=== PATIENT | male | born 1975 | race African-American/Black ===

== ENCOUNTER 2022-08-29 12:40 | Emergency (ER) | payer OTHER ==
[2022-08-29 13:13] VITALS: BMI 37.3
[2022-08-29] MEDS ORDERED: KETOROLAC TROMETHAMINE 15 MG/ML VIAL IVPUSH ONE (14:15)
[2022-08-29] MEDS ORDERED: KETOROLAC TROMETHAMINE 15 MG/ML VIAL ONE (14:50)
[2022-08-29 15:36] LABS: BASO % 0.8 % (0-2.0); EOS % 0.7 % (0-4.5); HEMATOCRIT 46.8 % (35.4-49); HEMOGLOBIN 15.6 GM/dL (11.7-16.9); LYMPH % 31.2 % (8-40); MCH 26.3 pg (25.7-33.7); MCHC 33.4 g/dl (32.0-35.9); MEAN CELL VOLUME 78.8 fl (80-96); MEAN PLT VOLUME 8.8 fl (7.5-11.1); NEUT % 56.3 % (42.8-82.8); PLATELET COUNT 374 10^3/uL (134-434); RBC 5.94 M/mm3 (4.00-5.60); RDW 13.8 % (11.9-15.9); WHITE BLOOD COUNT 7.9 K/mm3 (4.0-10.0)
[2022-08-29 15:58] LABS: ALBUMIN 3.7 g/dl (3.4-5.0); CALCIUM 9.5 mg/dL (8.5-10.1)
[2022-08-29 15:59] LABS: BLOOD UREA NITROGEN 16.4 mg/dL (7-18)
[2022-08-29 16:01] LABS: CREATININE 1.1 mg/dL (0.55-1.3)
[2022-08-29 16:03] LABS: BILIRUBIN,TOTAL 0.6 mg/dL (0.2-1)
[2022-08-29 20:53] VITALS: BP 178/88; PULSE 78; RESP 19; TEMP 98.6
[2022-08-29 21:08] LABS: EPI CELLS 6 /uL (0-25.1); HYALINE CASTS 1 /uL (0-3.1); URINE APPEARANCE CLEAR; URINE BACTERIA 3 /uL (0-1359); URINE BILIRUBIN NEGATIVE (NEGATIVE); URINE COLOR YELLOW; URINE GLUCOSE (UA) 2+ (NEGATIVE); URINE KETONE NEGATIVE (NEGATIVE); URINE LEUK ESTERASE NEGATIVE (NEGATIVE); URINE NITRITE NEGATIVE (NEGATIVE); URINE PROTEIN 2+ (NEGATIVE); URINE RBC 49 /uL (0-23.9); URINE WBC 3 /uL (0-25.8)
== END 2022-08-29 20:53 | disposition home or self-care (01) ==
LOC: JERFT 12:40
PROC: 3E0333Z Introduction of Anti-inflammatory into Peripheral Vein, Percutaneous Approach (ICD-10-PCS; principal; 2022-08-29)
DX: M54.50 Low back pain, unspecified (principal); W10.9XXA Fall (on) (from) unspecified stairs and steps, initial encounter
CPT/HCPCS: 36415; 71260-TC; 72125-TC; 72128-TC; 72131-TC; 74177-TC; 80053; 81003; 85025; 99285-25; Q9967